=== PATIENT | male | born 1960 | race Caucasian/White ===

== ENCOUNTER → 2017-04-15 | Outpatient (CLI) | payer BC ==
--- NOTE | 2017-04-15 11:38 | XCELERA REPORT ---
[address] [address] Lower Extremity Venous Evaluation Name: BERE CASTLE Age: 56 yrs Gender: Male : 1960 Patient Status: Outpatient Patient Location: Study Date: 04/15/2017 11:02 AM Procedure: Color flow and duplex imaging of the veins of the left lower extremity as well as the right Common Femoral vein. Reason For Study: R60.0 Ordering Physician: FARNAZ BELTRAN PA-C Performed By: Promise Castelan Right Sided Venous Evaluation The right common femoral vein is fully compressible. Spontaneous and phasic flow is present in the right common femoral vein. Left Sided Venous Evaluation Normal vessel filling wall to wall, compression and augmentation as well as Colour flow down to the infrageniculate veins. Interpretation Summary No duplex evidence of DVT or obstruction in the left lower extremity nor in the right Common Femoral vein. : FARNAZ BELTRAN PA-C > Bill Ramirez
== END ==
LOC: SP 10:15
PROVIDERS: ATTEND Physician Assistant
DX: R60.0 Localized edema (principal)
CPT/HCPCS: 93971